=== PATIENT | male | born 1955 | race Two or more races ===

== ENCOUNTER 2018-12-23 10:53 | Inpatient (IN) ==
[2018-12-23 12:07] LABS: Basophils # 0.1 10*3/uL (0.0-0.2); Basophils % 1.1 % (0.0-0.8); Eosinophils # 0.3 10*3/uL (0.0-0.87); Eosinophils % 4.9 % (0.00-10.9); Hematocrit 30.5 VOL% (42.0-52.0); Hemoglobin 10.1 GM/DL (14.0-18.0); Immature Granulocytes % 0.9 %; Immature Granulocytes Absolute 0.05 #; Lymphocytes # 1.5 10*3/uL (1.4-4.0); Lymphocytes % 28.1 % (21.2-54.2); Mean Corpuscular HGB Conc 33.1 GM/DL (32-36); Mean Corpuscular Hemoglobin 34 PG (27-34); Monocytes # 0.8 10*3/uL (0.11-0.8); Monocytes % 14.2 % (1.7-12.7); Neutrophils # 2.8 10*3/uL (1.4-7.4); Neutrophils % 50.8 % (38.7-73.9); Platelet Count 129 T/CUMM (130-400); Red Blood Count 2.99 MC/CUMM (3.8-5.5); Red Cell Distribution Width 16.3 % (9.3-17.3); White Blood Count 5.5 T/CUMM (4-12)
[2018-12-23 12:32] LABS: Albumin 1.6 G/DL (3.4-5.0); Calcium 7.8 MG/DL (8.5-10.1); Osmolality,Calculated 274.7 MOS/KG (273-304); Potassium 4.2 MMOL/L (3.5-5.1); Total Protein 6.9 G/DL (6.4-8.3)
[2018-12-23] MEDS ORDERED: PROMETHAZINE 25 MG/1 ML VIAL IM PRN (13:17)
[2018-12-23] MEDS ORDERED: ONDANSETRON 4 MG/2 ML VIAL IV PRN (13:17)
[2018-12-23 13:20] LABS: Hepatitis A Ab IgM Quant 0.16 Index; Hepatitis A Ab IgM Result Negative (Negative); Hepatitis B Core IgM Quant 0.48 Index; Hepatitis B Core IgM Result Negative (Negative); Hepatitis B Surface Ag Quant > 1000.00 Index; Hepatitis C Virus Ab Result Negative (Negative)
[2018-12-23 13:34] LABS: Hepatitis B Surface Ag Result Positive (Negative)
[2018-12-23] MEDS: PANTOPRAZOLE 40 MG TABLET PO SCH (13:56)
[2018-12-23] MEDS ORDERED: ALBUMIN 25% 25 GM in PREMIX 1 EACH IV SCH (14:00)
[2018-12-23 14:07] LABS: Apearance,Urine CLOUDY (Clear); Bilirubin,Urine Negative (Negative); Blood, Urine Large mg/dL (Negative); Calcium Oxalate Crystals,Urine Occasional /HPF (Few); Glucose,Urine (UA) Negative (Negative); Hyaline Casts,Urine 2 /LPF (0-3); Ketones,Urine Negative (Negative); Mucus,Urine Few /LPF (Occasional); Nitrite,Urine Negative (Negative); Protein,Urine Negative; RBC,Urine 56 /HPF (0-4); Squamous Epithelial Cell,Urine Occasional /HPF (0-10); Urine Color Amber (Yellow); Urine Specific Gravity 1.019 (1.001-1.035); WBC,Urine 9 /HPF (0-6)
[2018-12-23 15:01] LABS: INR 1.5; PT Patient Result 16.6 SECS
[2018-12-23] MEDS: PIPERACILLIN/TAZOBACTAM 3,375 MG in SODIUM CHLORIDE 0.9% 100 ML IV SCH (17:21)
[2018-12-23] MEDS: FUROSEMIDE 40 MG/4 ML VIAL IV SCH (17:21)
[2018-12-23] MEDS: SPIRONOLACTONE 50 MG TABLET PO SCH ×2 (17:22→21:11)
[2018-12-23] MEDS: ALBUMIN 25% 25 GM in PREMIX 1 EACH IV SCH (17:23)
[2018-12-23 17:53] LABS: RBC,Peritoneal Fluid 160 T/CUMM
[2018-12-23 18:21] LABS: Folate 21.3 NG/ML (5.4-24.0)
[2018-12-23 18:33] LABS: Neutrophils,Peritoneal Fluid 13 %
[2018-12-24] MEDS: PIPERACILLIN/TAZOBACTAM 3,375 MG in SODIUM CHLORIDE 0.9% 100 ML IV SCH ×2 (01:30→08:59)
[2018-12-24] MEDS: FUROSEMIDE 40 MG/4 ML VIAL IV SCH (05:31)
[2018-12-24] MEDS: ALBUMIN 25% 25 GM in PREMIX 1 EACH IV SCH ×2 (05:31→17:32)
[2018-12-24 07:20] LABS: Eosinophils # 0.2 10*3/uL (0.0-0.87); Eosinophils % 5.3 % (0.00-10.9); Hematocrit 26.7 VOL% (42.0-52.0); Immature Granulocytes % 0.5 %; Immature Granulocytes Absolute 0.02 #; Lymphocytes # 1.5 10*3/uL (1.4-4.0); Lymphocytes % 38.4 % (21.2-54.2); Mean Corpuscular HGB Conc 33.7 GM/DL (32-36); Mean Corpuscular Hemoglobin 34 PG (27-34); Mean Corpuscular Volume 101.1 FL (87-102); Mean Platelet Volume 10.1 FL (9.6-12.0); Monocytes # 0.6 10*3/uL (0.11-0.8); Monocytes % 15.4 % (1.7-12.7); Neutrophils # 1.6 10*3/uL (1.4-7.4); Neutrophils % 39.4 % (38.7-73.9); Red Blood Count 2.64 MC/CUMM (3.8-5.5)
[2018-12-24 07:26] LABS: Platelet Count 99 T/CUMM (130-400)
[2018-12-24 07:44] LABS: Platelet Estimate Decreased
[2018-12-24 07:45] LABS: Albumin 1.5 G/DL (3.4-5.0); Bilirubin,Total 3.3 MG/DL (0.2-1.0); Calcium 7.4 MG/DL (8.5-10.1); Osmolality,Calculated 274.5 MOS/KG (273-304); Potassium 3.8 MMOL/L (3.5-5.1); Risk Ratio 3.73; Thyroid Stimulating Hormone 3.24 uIU/ml (0.358-3.74); Total Protein 5.6 G/DL (6.4-8.3); VLDL CHOLESTEROL 11.4 MG/DL
[2018-12-24] MEDS: PANTOPRAZOLE 40 MG TABLET PO SCH (08:59)
[2018-12-24] MEDS: SPIRONOLACTONE 50 MG TABLET PO SCH ×2 (08:59→20:27)
[2018-12-24] MEDS ORDERED: MAGNESIUM SULF RIDER 2 GM in PREMIX 1 EACH IV ONE (09:35)
[2018-12-24] MEDS ORDERED: cefTRIAXone 2,000 MG in SYRINGE 1 EACH IV SCH (15:30)
[2018-12-24] MEDS: PROPRANOLOL 10 MG TABLET PO SCH (22:11)
[2018-12-25 05:57] LABS: Basophils % 0.5 % (0.0-0.8); Eosinophils # 0.3 10*3/uL (0.0-0.87); Hematocrit 25.7 VOL% (42.0-52.0); Hemoglobin 8.8 GM/DL (14.0-18.0); Immature Granulocytes % 0.5 %; Immature Granulocytes Absolute 0.02 #; Lymphocytes # 1.5 10*3/uL (1.4-4.0); Lymphocytes % 36.4 % (21.2-54.2); Mean Corpuscular HGB Conc 34.2 GM/DL (32-36); Mean Corpuscular Hemoglobin 34 PG (27-34); Mean Corpuscular Volume 99.2 FL (87-102); Mean Platelet Volume 10.6 FL (9.6-12.0); Monocytes # 0.6 10*3/uL (0.11-0.8); Monocytes % 14.8 % (1.7-12.7); Neutrophils # 1.8 10*3/uL (1.4-7.4); Neutrophils % 41.8 % (38.7-73.9); Platelet Count 96 T/CUMM (130-400); Red Blood Count 2.59 MC/CUMM (3.8-5.5); Red Cell Distribution Width 15.7 % (9.3-17.3); White Blood Count 4.2 T/CUMM (4-12)
[2018-12-25 06:07] LABS: Calcium 7.4 MG/DL (8.5-10.1); Osmolality,Calculated 277.4 MOS/KG (273-304); Potassium 3.8 MMOL/L (3.5-5.1)
[2018-12-25 06:23] LABS: Platelet Estimate Decreased; Target Cells Few
[2018-12-25] MEDS: PROPRANOLOL 10 MG TABLET PO SCH ×2 (09:00→14:53)
[2018-12-25] MEDS ORDERED: FUROSEMIDE 40 MG TABLET PO SCH (09:00)
[2018-12-25] MEDS: PANTOPRAZOLE 40 MG TABLET PO SCH (14:53)
[2018-12-25] MEDS: SPIRONOLACTONE 50 MG TABLET PO SCH (14:53)
[2018-12-25 15:36] VITALS: BP 116/68
== END 2018-12-25 17:00 | disposition home or self-care (01) | DRG 441 ==
LOC: N.EDINP 10:53 → N.ED 10:53 → OBSVTOIN 13:17 → N.EDINP 14:40 → N.5E 15:04
PROVIDERS: ADMIT Internal Medicine; ATTEND Internal Medicine

== ENCOUNTER 2019-01-28 10:49 | Inpatient (IN) ==
[2019-01-28 11:48] LABS: INR 1.3; PT Patient Result 13.7 SECS
[2019-01-28 11:50] LABS: Basophils # 0.1 10*3/uL (0.0-0.2); Basophils % 0.6 % (0.0-0.8); Eosinophils # 0.3 10*3/uL (0.0-0.87); Hematocrit 39.3 VOL% (42.0-52.0); Hemoglobin 13.7 GM/DL (14.0-18.0); Immature Granulocytes % 0.8 %; Immature Granulocytes Absolute 0.08 #; Lymphocytes # 2.9 10*3/uL (1.4-4.0); Lymphocytes % 29.8 % (21.2-54.2); Mean Corpuscular HGB Conc 34.9 GM/DL (32-36); Mean Corpuscular Hemoglobin 34 PG (27-34); Mean Corpuscular Volume 96.3 FL (87-102); Mean Platelet Volume 10.9 FL (9.6-12.0); Monocytes % 10.7 % (1.7-12.7); Neutrophils # 5.4 10*3/uL (1.4-7.4); Neutrophils % 55.1 % (38.7-73.9); Platelet Count 133 T/CUMM (130-400); Red Blood Count 4.08 MC/CUMM (3.8-5.5); Red Cell Distribution Width 14.7 % (9.3-17.3); White Blood Count 9.8 T/CUMM (4-12)
[2019-01-28 12:07] LABS: Alanine Aminotransferase 35 U/L (16-61); Alkaline Phosphatase 150 U/L (45-117); Aspartate Amino Transferase 70 U/L (0-37); Blood Urea Nitrogen 22 MG/DL (7-18); Calcium 9.4 MG/DL (8.5-10.1); Glucose 157 MG/DL (74-106); Osmolality,Calculated 256.5 MOS/KG (273-304); Potassium 5.4 MMOL/L (3.5-5.1); Sodium 125 MMOL/L (136-145); Total Protein 7.2 G/DL (6.4-8.3); Troponin I < 0.015 NG/ML (0.00-0.045)
[2019-01-28] MEDS ORDERED: SODIUM CHLORIDE 0.9% 1,000 ML IV STA (12:52)
[2019-01-28] MEDS ORDERED: ONDANSETRON 4 MG/2 ML VIAL IV STA (12:52)
[2019-01-28] MEDS ORDERED: ONDANSETRON 4 MG/2 ML VIAL IV PRN (13:17)
[2019-01-28] MEDS: DEXTROSE 5% NACL 0.9% 1,000 ML IV SCH (16:20)
[2019-01-28 19:08] LABS: Apearance,Urine CLOUDY (Clear); Bacteria,Urine Moderate /HPF (Few); Bilirubin,Urine Negative (Negative); Blood, Urine Large mg/dL (Negative); Glucose,Urine (UA) Negative (Negative); Hyaline Casts,Urine 5 /LPF (0-3); Ketones,Urine Negative (Negative); Mucus,Urine Occasional /LPF (Occasional); Nitrite,Urine Negative (Negative); Protein,Urine 30 MG/DL; RBC,Urine 39 /HPF (0-4); Urine Color Amber (Yellow); Urine Specific Gravity 1.014 (1.001-1.035); WBC,Urine 867 /HPF (0-6)
[2019-01-29] MEDS: DEXTROSE 5% NACL 0.9% 1,000 ML IV SCH ×4 (02:29→18:11)
[2019-01-29 05:23] LABS: Basophils # 0.1 10*3/uL (0.0-0.2); Basophils % 0.8 % (0.0-0.8); Eosinophils # 0.4 10*3/uL (0.0-0.87); Eosinophils % 4.5 % (0.00-10.9); Hematocrit 31.1 VOL% (42.0-52.0); Immature Granulocytes % 0.9 %; Immature Granulocytes Absolute 0.07 #; Lymphocytes # 2.6 10*3/uL (1.4-4.0); Lymphocytes % 33.1 % (21.2-54.2); Mean Corpuscular HGB Conc 33.8 GM/DL (32-36); Mean Corpuscular Hemoglobin 33 PG (27-34); Mean Corpuscular Volume 97.8 FL (87-102); Monocytes % 12.1 % (1.7-12.7); Neutrophils # 3.8 10*3/uL (1.4-7.4); Neutrophils % 48.6 % (38.7-73.9); Red Cell Distribution Width 14.6 % (9.3-17.3); White Blood Count 7.9 T/CUMM (4-12)
[2019-01-29 05:41] LABS: Hemoglobin 10.5 GM/DL (14.0-18.0); Platelet Count 105 T/CUMM (130-400); Red Blood Count 3.18 MC/CUMM (3.8-5.5)
[2019-01-29 05:48] LABS: Calcium 8.1 MG/DL (8.5-10.1); Osmolality,Calculated 267.5 MOS/KG (273-304); Potassium 4.7 MMOL/L (3.5-5.1)
[2019-01-29] MEDS: PANTOPRAZOLE 40 MG VIAL IV SCH (08:19)
[2019-01-29] MEDS: PROPRANOLOL 10 MG TABLET PO SCH ×2 (09:19→21:50)
[2019-01-29] MEDS: LACTULOSE 20 GM/30 ML UDCUP PO SCH ×2 (09:19→21:51)
[2019-01-29] MEDS: SPIRONOLACTONE 50 MG TABLET PO SCH ×2 (09:19→21:50)
[2019-01-29] MEDS: cefTRIAXone 1,000 MG in SYRINGE 1 EACH IV SCH (09:19)
[2019-01-30] MEDS: DEXTROSE 5% NACL 0.9% 1,000 ML IV SCH ×3 (01:35→17:36)
[2019-01-30 06:00] LABS: Basophils # 0.1 10*3/uL (0.0-0.2); Basophils % 1.1 % (0.0-0.8); Eosinophils # 0.3 10*3/uL (0.0-0.87); Eosinophils % 4.9 % (0.00-10.9); Hematocrit 28.8 VOL% (42.0-52.0); Hemoglobin 9.4 GM/DL (14.0-18.0); Immature Granulocytes % 0.6 %; Immature Granulocytes Absolute 0.04 #; Lymphocytes # 1.9 10*3/uL (1.4-4.0); Lymphocytes % 28.3 % (21.2-54.2); Mean Corpuscular HGB Conc 32.6 GM/DL (32-36); Mean Corpuscular Hemoglobin 33 PG (27-34); Mean Corpuscular Volume 101.1 FL (87-102); Mean Platelet Volume 10.3 FL (9.6-12.0); Monocytes % 15.3 % (1.7-12.7); Neutrophils # 3.3 10*3/uL (1.4-7.4); Neutrophils % 49.8 % (38.7-73.9); Platelet Count 84 T/CUMM (130-400); Red Blood Count 2.85 MC/CUMM (3.8-5.5); White Blood Count 6.5 T/CUMM (4-12)
[2019-01-30 06:07] LABS: Albumin 1.3 G/DL (3.4-5.0); Bilirubin,Direct 1.6 MG/DL (0.0-0.20); Bilirubin,Indirect 1.2 MG/DL (0.0-1.0); Bilirubin,Total 2.8 MG/DL (0.2-1.0); Calcium 7.6 MG/DL (8.5-10.1); Osmolality,Calculated 278.5 MOS/KG (273-304); Potassium 4.2 MMOL/L (3.5-5.1); Total Protein 4.9 G/DL (6.4-8.3)
[2019-01-30 06:42] LABS: Band Neutrophils 2 % (0-10); Eosinophils 4 % (0-10); Lymphocytes 23 % (20-55); Segmented Neutrophils 60 % (50-85); Total Cells Counted 100
[2019-01-30 06:43] LABS: Anisocytosis 1+; Platelet Estimate Decreased
[2019-01-30] MEDS: PROPRANOLOL 10 MG TABLET PO SCH ×2 (08:54→21:28)
[2019-01-30] MEDS: SPIRONOLACTONE 50 MG TABLET PO SCH ×2 (08:54→21:28)
[2019-01-30] MEDS: PANTOPRAZOLE 40 MG VIAL IV SCH (08:54)
[2019-01-30] MEDS: LACTULOSE 20 GM/30 ML UDCUP PO SCH ×2 (08:54→21:28)
[2019-01-30] MEDS: cefTRIAXone 1,000 MG in SYRINGE 1 EACH IV SCH (08:55)
[2019-01-30] MEDS ORDERED: MAGNESIUM SULF RIDER 2 GM in PREMIX 1 EACH IV ONE ×2 (13:46→18:00)
[2019-01-31] MEDS: DEXTROSE 5% NACL 0.9% 1,000 ML IV SCH ×3 (04:00→21:50)
[2019-01-31 05:57] LABS: Basophils # 0.1 10*3/uL (0.0-0.2); Basophils % 0.9 % (0.0-0.8); Eosinophils # 0.5 10*3/uL (0.0-0.87); Eosinophils % 6.3 % (0.00-10.9); Hematocrit 26.5 VOL% (42.0-52.0); Immature Granulocytes % 0.8 %; Immature Granulocytes Absolute 0.06 #; Lymphocytes # 1.7 10*3/uL (1.4-4.0); Lymphocytes % 22.2 % (21.2-54.2); Mean Corpuscular Hemoglobin 34 PG (27-34); Mean Corpuscular Volume 100.4 FL (87-102); Mean Platelet Volume 11.3 FL (9.6-12.0); Monocytes # 1.4 10*3/uL (0.11-0.8); Monocytes % 18.6 % (1.7-12.7); Neutrophils # 3.9 10*3/uL (1.4-7.4); Neutrophils % 51.2 % (38.7-73.9); Red Blood Count 2.64 MC/CUMM (3.8-5.5); White Blood Count 7.6 T/CUMM (4-12)
[2019-01-31 06:11] LABS: Platelet Count 83 T/CUMM (130-400)
[2019-01-31 06:30] LABS: Albumin 1.4 G/DL (3.4-5.0); Bilirubin,Direct 1.5 MG/DL (0.0-0.20); Bilirubin,Indirect 1.4 MG/DL (0.0-1.0); Bilirubin,Total 2.9 MG/DL (0.2-1.0); Calcium 7.5 MG/DL (8.5-10.1); Osmolality,Calculated 277.5 MOS/KG (273-304); Potassium 4.7 MMOL/L (3.5-5.1); Total Protein 4.8 G/DL (6.4-8.3)
[2019-01-31 07:07] LABS: Eosinophils 9 % (0-10); Lymphocytes 25 % (20-55); Segmented Neutrophils 46 % (50-85); Total Cells Counted 100
[2019-01-31 07:08] LABS: Platelet Estimate Decreased; Smudge Cells Few
[2019-01-31 07:09] LABS: Burr Cells Few
[2019-01-31] MEDS: SPIRONOLACTONE 50 MG TABLET PO SCH ×2 (09:15→20:34)
[2019-01-31] MEDS: PANTOPRAZOLE 40 MG VIAL IV SCH (09:15)
[2019-01-31] MEDS: LACTULOSE 20 GM/30 ML UDCUP PO SCH ×2 (09:15→20:34)
[2019-01-31] MEDS: PROPRANOLOL 10 MG TABLET PO SCH ×2 (09:15→20:34)
[2019-01-31] MEDS: cefTRIAXone 1,000 MG in SYRINGE 1 EACH IV SCH (09:16)
[2019-01-31] MEDS: MEROPENEM 500 MG in SODIUM CHLORIDE 0.9% 100 ML IV SCH ×2 (15:03→23:11)
[2019-01-31] MEDS: FAMOTIDINE 20 MG TABLET PO SCH (20:34)
[2019-01-31] MEDS ORDERED: FAMOTIDINE 20 MG TABLET PO SCH (21:00)
[2019-02-01 05:23] LABS: Basophils # 0.1 10*3/uL (0.0-0.2); Basophils % 0.9 % (0.0-0.8); Eosinophils # 0.4 10*3/uL (0.0-0.87); Eosinophils % 6.2 % (0.00-10.9); Hematocrit 25.5 VOL% (42.0-52.0); Hemoglobin 8.5 GM/DL (14.0-18.0); Immature Granulocytes % 0.9 %; Immature Granulocytes Absolute 0.06 #; Lymphocytes # 1.9 10*3/uL (1.4-4.0); Lymphocytes % 27.4 % (21.2-54.2); Mean Corpuscular HGB Conc 33.3 GM/DL (32-36); Mean Corpuscular Hemoglobin 34 PG (27-34); Mean Corpuscular Volume 100.8 FL (87-102); Mean Platelet Volume 10.8 FL (9.6-12.0); Monocytes # 1.3 10*3/uL (0.11-0.8); Monocytes % 18.1 % (1.7-12.7); Neutrophils # 3.2 10*3/uL (1.4-7.4); Neutrophils % 46.5 % (38.7-73.9); Platelet Count 74 T/CUMM (130-400); Red Blood Count 2.53 MC/CUMM (3.8-5.5); Red Cell Distribution Width 15.2 % (9.3-17.3)
[2019-02-01 05:47] LABS: Albumin 1.3 G/DL (3.4-5.0); Bilirubin,Direct 1.49 MG/DL (0.0-0.20); Bilirubin,Indirect 1.5 MG/DL (0.0-1.0); Calcium 7.3 MG/DL (8.5-10.1); Osmolality,Calculated 276.5 MOS/KG (273-304); Potassium 4.9 MMOL/L (3.5-5.1); Total Protein 4.4 G/DL (6.4-8.3)
[2019-02-01 05:50] LABS: Eosinophils 8 % (0-10); Hypochromasia 1+; Lymphocytes 18 % (20-55); Platelet Estimate Decreased; Segmented Neutrophils 56 % (50-85); Total Cells Counted 100
[2019-02-01] MEDS: MEROPENEM 500 MG in SODIUM CHLORIDE 0.9% 100 ML IV SCH ×2 (06:34→16:18)
[2019-02-01] MEDS: LACTULOSE 20 GM/30 ML UDCUP PO SCH (08:19)
[2019-02-01] MEDS: FAMOTIDINE 20 MG TABLET PO SCH (08:19)
[2019-02-01] MEDS: PROPRANOLOL 10 MG TABLET PO SCH (08:19)
[2019-02-01] MEDS: SPIRONOLACTONE 50 MG TABLET PO SCH (08:19)
[2019-02-01] MEDS: DEXTROSE 5% NACL 0.9% 1,000 ML IV SCH ×2 (08:23→16:18)
[2019-02-01 16:01] VITALS: BP 125/71
== END 2019-02-01 17:41 | disposition home or self-care (01) | DRG 433 ==
LOC: N.ED 10:49 → N.EDINP 10:49 → N.2E 16:26
PROVIDERS: ADMIT Family Medicine; ATTEND Family Medicine

== ENCOUNTER 2019-02-23 21:06 | Inpatient (IN) ==
[2019-02-23] MEDS ORDERED: SODIUM CHLORIDE 0.9% 1,000 ML IV STA (21:45)
[2019-02-23 21:55] LABS: Basophils # 0.1 10*3/uL (0.0-0.2); Eosinophils # 0.3 10*3/uL (0.0-0.87); Eosinophils % 2.5 % (0.00-10.9); Hemoglobin 11.6 GM/DL (14.0-18.0); Immature Granulocytes % 2.2 %; Immature Granulocytes Absolute 0.25 #; Lymphocytes # 2.6 10*3/uL (1.4-4.0); Lymphocytes % 22.9 % (21.2-54.2); Mean Corpuscular HGB Conc 35.2 GM/DL (32-36); Mean Corpuscular Hemoglobin 34 PG (27-34); Mean Corpuscular Volume 97.3 FL (87-102); Mean Platelet Volume 10.2 FL (9.6-12.0); Monocytes # 1.7 10*3/uL (0.11-0.8); Monocytes % 14.8 % (1.7-12.7); Neutrophils # 6.5 10*3/uL (1.4-7.4); Neutrophils % 56.6 % (38.7-73.9); Platelet Count 146 T/CUMM (130-400); Red Blood Count 3.39 MC/CUMM (3.8-5.5); Red Cell Distribution Width 15.1 % (9.3-17.3); White Blood Count 11.4 T/CUMM (4-12)
[2019-02-23 22:04] LABS: INR 1.4; PT Patient Result 14.7 SECS
[2019-02-23 22:18] LABS: Alanine Aminotransferase 31 U/L (16-61); Albumin 1.8 G/DL (3.4-5.0); Alkaline Phosphatase 163 U/L (45-117); Aspartate Amino Transferase 62 U/L (0-37); Blood Urea Nitrogen 35 MG/DL (7-18); Calcium 8.2 MG/DL (8.5-10.1); Glucose 157 MG/DL (74-106); Osmolality,Calculated 259.6 MOS/KG (273-304); Sodium 124 MMOL/L (136-145); Total Protein 6.6 G/DL (6.4-8.3); Troponin I < 0.015 NG/ML (0.00-0.045)
[2019-02-23 22:25] LABS: ABG Base Excess -1.6 MMOL/L (-2.5-2.5); ABG HCO3 23.1 MMOL/L (20-26); ABG Oxygen Saturation 98.9 % (95-100); ABG PCO2 31.6 MM HG (35-48); ABG PH 7.444 (7.35-7.45); ABG TCO2 19.3 MMOL/L (23-27)
[2019-02-23] MEDS ORDERED: cefTRIAXone 1,000 MG in SODIUM CHLORIDE 0.9% 100 ML IV STA (23:17)
[2019-02-23] MEDS ORDERED: LIDOCAINE 2% TOP JELLY 20 ML VIAL INTRAURETH ONE (23:38)
[2019-02-24] MEDS ORDERED: SODIUM CHLORIDE 0.9% 1,000 ML IV SCH (00:50)
[2019-02-24] MEDS ORDERED: LACTULOSE 20 GM/30 ML UDCUP PO PRN (00:50)
[2019-02-24] MEDS ORDERED: GLUCAGON 1 MG VIAL IM PRN (00:50)
[2019-02-24] MEDS ORDERED: ONDANSETRON 4 MG/2 ML VIAL IV PRN (00:50)
[2019-02-24] MEDS ORDERED: DEXTROSE 50% 25 GM/50 ML SYRINGE IV PRN (00:50)
[2019-02-24] MEDS ORDERED: ACETAMINOPHEN 325 MG TABLET PO PRN (00:50)
[2019-02-24 01:21] LABS: Apearance,Urine CLEAR (Clear); Bilirubin,Urine Negative (Negative); Blood, Urine Large mg/dL (Negative); Glucose,Urine (UA) Negative (Negative); Ketones,Urine Negative (Negative); Nitrite,Urine Negative (Negative); Protein,Urine Negative; RBC,Urine 55 /HPF (0-4); Squamous Epithelial Cell,Urine Occasional /HPF (0-10); Urine Color Yellow (Yellow); Urine Specific Gravity 1.008 (1.001-1.035); Urine Urobilinogen < 2.0 EU/DL (0.2-1.0); WBC,Urine 3 /HPF (0-6)
[2019-02-24] MEDS: INSULIN REGULAR 100 UNIT/ML SUBCUT SCH ×5 (01:23→23:55)
[2019-02-24 02:36] LABS: Albumin 1.9 G/DL (3.4-5.0); Bilirubin,Total 3.3 MG/DL (0.2-1.0); Calcium 8.2 MG/DL (8.5-10.1); Osmolality,Calculated 264.2 MOS/KG (273-304); Potassium 5.7 MMOL/L (3.5-5.1); Risk Ratio 4.52; Total Protein 6.7 G/DL (6.4-8.3)
[2019-02-24 04:04] LABS: Basophils # 0.1 10*3/uL (0.0-0.2); Basophils % 0.6 % (0.0-0.8); Eosinophils # 0.2 10*3/uL (0.0-0.87); Eosinophils % 1.9 % (0.00-10.9); Hematocrit 29.6 VOL% (42.0-52.0); Hemoglobin 10.4 GM/DL (14.0-18.0); Immature Granulocytes % 2.4 %; Immature Granulocytes Absolute 0.26 #; Lymphocytes % 18.7 % (21.2-54.2); Mean Corpuscular HGB Conc 35.1 GM/DL (32-36); Mean Corpuscular Hemoglobin 34 PG (27-34); Mean Corpuscular Volume 95.5 FL (87-102); Mean Platelet Volume 10.5 FL (9.6-12.0); Monocytes # 1.5 10*3/uL (0.11-0.8); Monocytes % 14.2 % (1.7-12.7); Neutrophils # 6.7 10*3/uL (1.4-7.4); Neutrophils % 62.2 % (38.7-73.9); Platelet Count 128 T/CUMM (130-400); Red Cell Distribution Width 14.9 % (9.3-17.3); White Blood Count 10.8 T/CUMM (4-12)
[2019-02-24 05:40] LABS: Barbiturates Screen,Urine Negative (Negative); Benzodiazepines Screen,Urine Negative (Negative); Cannabinoid Screen,Urine Negative (Negative); Opiate Screen,Urine Negative (Negative); Phencyclidine Screen,Urine Negative (Negative)
[2019-02-24] MEDS ORDERED: LACTULOSE 20 GM/30 ML UDCUP PO ONE (08:45)
[2019-02-24] MEDS: DOCUSATE SODIUM 100 MG CAPSULE PO SCH ×2 (08:49→21:17)
[2019-02-24] MEDS: PANTOPRAZOLE 40 MG VIAL IV SCH (08:49)
[2019-02-24] MEDS: SODIUM CHLORIDE 0.9% 1,000 ML IV SCH (10:09)
[2019-02-24] MEDS: LACTULOSE 20 GM/30 ML UDCUP PO SCH ×2 (17:56→21:17)
[2019-02-24] MEDS: cefTRIAXone 1,000 MG in SYRINGE 1 EACH IV SCH (23:38)
[2019-02-25] MEDS: LACTULOSE 20 GM/30 ML UDCUP PO SCH ×3 (05:30→21:21)
[2019-02-25 05:43] LABS: Basophils # 0.1 10*3/uL (0.0-0.2); Basophils % 0.8 % (0.0-0.8); Eosinophils # 0.2 10*3/uL (0.0-0.87); Eosinophils % 2.3 % (0.00-10.9); Hematocrit 25.5 VOL% (42.0-52.0); Immature Granulocytes % 2.1 %; Immature Granulocytes Absolute 0.16 #; Lymphocytes # 2.5 10*3/uL (1.4-4.0); Lymphocytes % 31.6 % (21.2-54.2); Mean Corpuscular HGB Conc 35.3 GM/DL (32-36); Mean Corpuscular Hemoglobin 35 PG (27-34); Mean Corpuscular Volume 97.7 FL (87-102); Mean Platelet Volume 10.7 FL (9.6-12.0); Monocytes # 1.6 10*3/uL (0.11-0.8); Monocytes % 20.4 % (1.7-12.7); Neutrophils # 3.3 10*3/uL (1.4-7.4); Neutrophils % 42.8 % (38.7-73.9); Platelet Count 91 T/CUMM (130-400); Red Blood Count 2.61 MC/CUMM (3.8-5.5); Red Cell Distribution Width 15.6 % (9.3-17.3); White Blood Count 7.8 T/CUMM (4-12)
[2019-02-25] MEDS: SODIUM CHLORIDE 0.9% 1,000 ML IV SCH (05:47)
[2019-02-25 05:57] LABS: Albumin 1.4 G/DL (3.4-5.0); Bilirubin,Direct 1.37 MG/DL (0.0-0.20); Bilirubin,Indirect 0.9 MG/DL (0.0-1.0); Bilirubin,Total 2.3 MG/DL (0.2-1.0); Calcium 7.6 MG/DL (8.5-10.1); Osmolality,Calculated 271.5 MOS/KG (273-304); Total Protein 5.1 G/DL (6.4-8.3)
[2019-02-25 06:34] LABS: Eosinophils 3 % (0-10); Lymphocytes 40 % (20-55); Myelocytes 1 %; Segmented Neutrophils 35 % (50-85); Total Cells Counted 100
[2019-02-25 06:35] LABS: Hypochromasia 1+
[2019-02-25 06:36] LABS: Burr Cells 1+; Platelet Estimate Decreased
[2019-02-25] MEDS: INSULIN REGULAR 100 UNIT/ML SUBCUT SCH ×3 (06:43→18:56)
[2019-02-25] MEDS ORDERED: Entecavir [Entecavir] 0.5 MG PO SCH (09:00)
[2019-02-25] MEDS: PANTOPRAZOLE 40 MG VIAL IV SCH (09:21)
[2019-02-25] MEDS: DOCUSATE SODIUM 100 MG CAPSULE PO SCH ×2 (09:21→20:31)
[2019-02-25] MEDS: ZINC SULFATE 220 MG CAPSULE PO SCH (09:21)
[2019-02-25] MEDS: MULTIVITAMIN (CENTRUM) TABLET PO SCH (09:21)
[2019-02-26] MEDS: cefTRIAXone 1,000 MG in SYRINGE 1 EACH IV SCH (01:30)
[2019-02-26] MEDS: INSULIN REGULAR 100 UNIT/ML SUBCUT SCH ×4 (01:43→17:58)
[2019-02-26] MEDS: SODIUM CHLORIDE 0.9% 1,000 ML IV SCH (03:29)
[2019-02-26 05:19] LABS: Basophils # 0.1 10*3/uL (0.0-0.2); Basophils % 0.8 % (0.0-0.8); Eosinophils # 0.3 10*3/uL (0.0-0.87); Eosinophils % 3.7 % (0.00-10.9); Hematocrit 25.9 VOL% (42.0-52.0); Hemoglobin 8.8 GM/DL (14.0-18.0); Immature Granulocytes Absolute 0.22 #; Lymphocytes # 1.4 10*3/uL (1.4-4.0); Lymphocytes % 19.7 % (21.2-54.2); Mean Corpuscular Hemoglobin 34 PG (27-34); Mean Corpuscular Volume 99.2 FL (87-102); Monocytes # 1.5 10*3/uL (0.11-0.8); Monocytes % 20.4 % (1.7-12.7); Neutrophils # 3.8 10*3/uL (1.4-7.4); Neutrophils % 52.4 % (38.7-73.9); Platelet Count 98 T/CUMM (130-400); Red Blood Count 2.61 MC/CUMM (3.8-5.5); Red Cell Distribution Width 15.4 % (9.3-17.3); White Blood Count 7.3 T/CUMM (4-12)
[2019-02-26 05:31] LABS: Albumin 1.5 G/DL (3.4-5.0); Bilirubin,Direct 1.31 MG/DL (0.0-0.20); Bilirubin,Indirect 1.7 MG/DL (0.0-1.0); Calcium 7.6 MG/DL (8.5-10.1); Osmolality,Calculated 265.7 MOS/KG (273-304); Total Protein 5.2 G/DL (6.4-8.3)
[2019-02-26 06:23] LABS: Anisocytosis Slight; Band Neutrophils 2 % (0-10); Eosinophils 5 % (0-10); Lymphocytes 15 % (20-55); Metamyelocytes 2 %; Microcytosis Slight; Segmented Neutrophils 69 % (50-85); Total Cells Counted 100
[2019-02-26 06:25] LABS: Platelet Estimate Decreased; Spherocytes Slight; Target Cells Slight
[2019-02-26] MEDS: LACTULOSE 20 GM/30 ML UDCUP PO SCH ×3 (06:44→21:18)
[2019-02-26] MEDS: ZINC SULFATE 220 MG CAPSULE PO SCH (08:55)
[2019-02-26] MEDS: MULTIVITAMIN (CENTRUM) TABLET PO SCH (08:55)
[2019-02-26] MEDS: DOCUSATE SODIUM 100 MG CAPSULE PO SCH ×2 (08:55→20:31)
[2019-02-26] MEDS: PANTOPRAZOLE 40 MG VIAL IV SCH (08:56)
[2019-02-26] MEDS ORDERED: MAGNESIUM SULF RIDER 2 GM in PREMIX 1 EACH IV PRN (10:14)
[2019-02-26] MEDS ORDERED: MAGNESIUM SULF RIDER 4 GM in PREMIX 1 EACH IV PRN (10:14)
[2019-02-26] MEDS ORDERED: PROMETHAZINE 25 MG TABLET PO PRN (15:28)
[2019-02-27] MEDS: cefTRIAXone 1,000 MG in SYRINGE 1 EACH IV SCH (00:32)
[2019-02-27] MEDS: INSULIN REGULAR 100 UNIT/ML SUBCUT SCH ×4 (00:33→18:36)
[2019-02-27 04:35] LABS: Basophils # 0.1 10*3/uL (0.0-0.2); Basophils % 0.6 % (0.0-0.8); Eosinophils # 0.3 10*3/uL (0.0-0.87); Eosinophils % 3.7 % (0.00-10.9); Hematocrit 25.7 VOL% (42.0-52.0); Hemoglobin 8.7 GM/DL (14.0-18.0); Immature Granulocytes % 2.2 %; Lymphocytes # 1.7 10*3/uL (1.4-4.0); Lymphocytes % 18.3 % (21.2-54.2); Mean Corpuscular HGB Conc 33.9 GM/DL (32-36); Mean Corpuscular Hemoglobin 34 PG (27-34); Mean Corpuscular Volume 99.6 FL (87-102); Mean Platelet Volume 10.5 FL (9.6-12.0); Monocytes # 1.7 10*3/uL (0.11-0.8); Monocytes % 18.3 % (1.7-12.7); Neutrophils # 5.1 10*3/uL (1.4-7.4); Neutrophils % 56.9 % (38.7-73.9); Platelet Count 100 T/CUMM (130-400); Red Blood Count 2.58 MC/CUMM (3.8-5.5); Red Cell Distribution Width 15.2 % (9.3-17.3)
[2019-02-27 05:34] LABS: Anisocytosis 1+; Eosinophils 9 % (0-10); Lymphocytes 20 % (20-55); Platelet Estimate Decreased; Segmented Neutrophils 55 % (50-85); Total Cells Counted 100
[2019-02-27 05:35] LABS: Albumin 1.5 G/DL (3.4-5.0); Bilirubin,Direct 1.41 MG/DL (0.0-0.20); Bilirubin,Indirect 1.6 MG/DL (0.0-1.0); Calcium 7.8 MG/DL (8.5-10.1); Osmolality,Calculated 264.8 MOS/KG (273-304); Potassium 5.1 MMOL/L (3.5-5.1); Total Protein 5.1 G/DL (6.4-8.3)
[2019-02-27] MEDS: LACTULOSE 20 GM/30 ML UDCUP PO SCH ×3 (06:36→21:11)
[2019-02-27] MEDS ORDERED: Entecavir [Entecavir] 0.5 MG PO SCH (09:00)
[2019-02-27] MEDS: PANTOPRAZOLE 40 MG VIAL IV SCH (09:20)
[2019-02-27] MEDS: MULTIVITAMIN (CENTRUM) TABLET PO SCH (09:20)
[2019-02-27] MEDS: ZINC SULFATE 220 MG CAPSULE PO SCH (09:20)
[2019-02-27] MEDS: DOCUSATE SODIUM 100 MG CAPSULE PO SCH ×2 (09:20→21:12)
[2019-02-28] MEDS: cefTRIAXone 1,000 MG in SYRINGE 1 EACH IV SCH (01:35)
[2019-02-28] MEDS: INSULIN REGULAR 100 UNIT/ML SUBCUT SCH ×4 (01:35→17:50)
[2019-02-28 05:01] LABS: Basophils % 0.6 % (0.0-0.8); Eosinophils # 0.4 10*3/uL (0.0-0.87); Eosinophils % 5.3 % (0.00-10.9); Hemoglobin 8.5 GM/DL (14.0-18.0); Immature Granulocytes % 2.7 %; Immature Granulocytes Absolute 0.19 #; Lymphocytes # 1.9 10*3/uL (1.4-4.0); Lymphocytes % 27.7 % (21.2-54.2); Mean Corpuscular Hemoglobin 34 PG (27-34); Mean Corpuscular Volume 98.8 FL (87-102); Mean Platelet Volume 10.7 FL (9.6-12.0); Monocytes # 1.1 10*3/uL (0.11-0.8); Monocytes % 15.8 % (1.7-12.7); Neutrophils # 3.4 10*3/uL (1.4-7.4); Neutrophils % 47.9 % (38.7-73.9); Platelet Count 88 T/CUMM (130-400); Red Blood Count 2.53 MC/CUMM (3.8-5.5); Red Cell Distribution Width 15.3 % (9.3-17.3)
[2019-02-28 05:32] LABS: Albumin 1.4 G/DL (3.4-5.0); Bilirubin,Direct 1.23 MG/DL (0.0-0.20); Bilirubin,Indirect 1.2 MG/DL (0.0-1.0); Bilirubin,Total 2.4 MG/DL (0.2-1.0); Calcium 7.4 MG/DL (8.5-10.1); Osmolality,Calculated 264.8 MOS/KG (273-304); Potassium 5.3 MMOL/L (3.5-5.1); Total Protein 5.1 G/DL (6.4-8.3)
[2019-02-28 06:06] LABS: Band Neutrophils 3 % (0-10); Eosinophils 3 % (0-10); Lymphocytes 31 % (20-55); Myelocytes 1 %; Segmented Neutrophils 52 % (50-85); Total Cells Counted 100
[2019-02-28 06:07] LABS: Anisocytosis 1+; Hypochromasia 1+; Platelet Estimate Decreased
[2019-02-28] MEDS: LACTULOSE 20 GM/30 ML UDCUP PO SCH ×3 (06:22→21:39)
[2019-02-28] MEDS: PANTOPRAZOLE 40 MG VIAL IV SCH (08:14)
[2019-02-28] MEDS: ZINC SULFATE 220 MG CAPSULE PO SCH (08:14)
[2019-02-28] MEDS: DOCUSATE SODIUM 100 MG CAPSULE PO SCH ×2 (08:14→21:39)
[2019-02-28] MEDS: MULTIVITAMIN (CENTRUM) TABLET PO SCH (08:14)
[2019-02-28] MEDS: OXYBUTYNIN 5 MG TABLET PO PRN ×2 (17:39→21:39)
[2019-03-01 00:06] LABS: Apearance,Urine Slightly Hazy (Clear); Bilirubin,Urine Negative (Negative); Blood, Urine Large mg/dL (Negative); Glucose,Urine (UA) Negative (Negative); Ketones,Urine 5 mg/dL (Negative); Mucus,Urine Occasional /LPF (Occasional); Nitrite,Urine Negative (Negative); Protein,Urine 100 MG/DL; RBC,Urine 2575 /HPF (0-4); Squamous Epithelial Cell,Urine Occasional /HPF (0-10); Urine Color Amber (Yellow); Urine Specific Gravity 1.023 (1.001-1.035); WBC,Urine 4 /HPF (0-6)
[2019-03-01] MEDS: INSULIN REGULAR 100 UNIT/ML SUBCUT SCH ×3 (00:28→12:29)
[2019-03-01] MEDS: cefTRIAXone 1,000 MG in SYRINGE 1 EACH IV SCH (00:32)
[2019-03-01 04:55] LABS: Basophils % 0.4 % (0.0-0.8); Eosinophils # 0.3 10*3/uL (0.0-0.87); Eosinophils % 3.9 % (0.00-10.9); Hematocrit 24.9 VOL% (42.0-52.0); Hemoglobin 8.5 GM/DL (14.0-18.0); Immature Granulocytes % 3.2 %; Immature Granulocytes Absolute 0.25 #; Lymphocytes # 1.8 10*3/uL (1.4-4.0); Lymphocytes % 23.3 % (21.2-54.2); Mean Corpuscular HGB Conc 34.1 GM/DL (32-36); Mean Corpuscular Hemoglobin 34 PG (27-34); Mean Corpuscular Volume 99.2 FL (87-102); Mean Platelet Volume 10.3 FL (9.6-12.0); Monocytes # 1.1 10*3/uL (0.11-0.8); Monocytes % 14.4 % (1.7-12.7); Neutrophils # 4.2 10*3/uL (1.4-7.4); Neutrophils % 54.8 % (38.7-73.9); Platelet Count 91 T/CUMM (130-400); Red Blood Count 2.51 MC/CUMM (3.8-5.5); Red Cell Distribution Width 15.6 % (9.3-17.3); White Blood Count 7.7 T/CUMM (4-12)
[2019-03-01 05:33] LABS: Albumin 1.4 G/DL (3.4-5.0); Bilirubin,Direct 1.12 MG/DL (0.0-0.20); Bilirubin,Indirect 0.6 MG/DL (0.0-1.0); Bilirubin,Total 1.7 MG/DL (0.2-1.0); Calcium 7.3 MG/DL (8.5-10.1); Osmolality,Calculated 263.9 MOS/KG (273-304); Potassium 5.5 MMOL/L (3.5-5.1); Total Protein 5.1 G/DL (6.4-8.3)
[2019-03-01] MEDS: LACTULOSE 20 GM/30 ML UDCUP PO SCH ×2 (05:42→15:00)
[2019-03-01 06:36] LABS: Eosinophils 7 % (0-10); Hypochromasia 1+; Lymphocytes 34 % (20-55); Platelet Estimate Decreased; Segmented Neutrophils 41 % (50-85); Total Cells Counted 100
[2019-03-01] MEDS ORDERED: ENTECAVIR 0.5 MG PO SCH (09:00)
[2019-03-01] MEDS: ZINC SULFATE 220 MG CAPSULE PO SCH (09:12)
[2019-03-01] MEDS: DOCUSATE SODIUM 100 MG CAPSULE PO SCH (09:12)
[2019-03-01] MEDS: MULTIVITAMIN (CENTRUM) TABLET PO SCH (09:12)
[2019-03-01] MEDS: PANTOPRAZOLE 40 MG VIAL IV SCH (09:13)
[2019-03-01] MEDS: OXYBUTYNIN 5 MG TABLET PO PRN (09:14)
[2019-03-01] MEDS ORDERED: SPIRONOLACTONE 25 MG TABLET PO SCH (11:00)
[2019-03-01] MEDS: FUROSEMIDE 20 MG TABLET PO SCH ×2 (12:29→16:18)
[2019-03-01 16:35] VITALS: BP 110/70
== END 2019-03-01 18:46 | disposition home health service (06) | DRG 442 ==
LOC: EDUNIT# → EDBD → N.ED 21:06 → N.EDINP 23:19 → N.TELES 23:58
PROVIDERS: ADMIT Family Medicine; ATTEND Family Medicine

== ENCOUNTER 2019-03-12 13:01 | Inpatient (IN) ==
[2019-03-12 13:48] LABS: Basophils # 0.1 10*3/uL (0.0-0.2); Eosinophils # 0.4 10*3/uL (0.0-0.87); Eosinophils % 5.9 % (0.00-10.9); Hematocrit 25.8 VOL% (42.0-52.0); Hemoglobin 8.5 GM/DL (14.0-18.0); Immature Granulocytes % 1.8 %; Immature Granulocytes Absolute 0.11 #; Lymphocytes # 1.9 10*3/uL (1.4-4.0); Lymphocytes % 31.7 % (21.2-54.2); Mean Corpuscular HGB Conc 32.9 GM/DL (32-36); Mean Corpuscular Volume 104.9 FL (87-102); Mean Platelet Volume 9.7 FL (9.6-12.0); Monocytes % 15.3 % (1.7-12.7); Neutrophils % 44.3 % (38.7-73.9); Platelet Count 124 T/CUMM (130-400); Red Blood Count 2.46 MC/CUMM (3.8-5.5); Red Cell Distribution Width 16.3 % (9.3-17.3); White Blood Count 6.1 T/CUMM (4-12)
[2019-03-12 14:09] LABS: Albumin 1.6 G/DL (3.4-5.0); Bilirubin,Direct 1.22 MG/DL (0.0-0.20); Bilirubin,Indirect 0.8 MG/DL (0.0-1.0); Calcium 7.4 MG/DL (8.5-10.1); Osmolality,Calculated 272.2 MOS/KG (273-304); Total Protein 5.5 G/DL (6.4-8.3)
[2019-03-12] MEDS ORDERED: DOPamine 800 MG/250 ML PREMIX IV PRN ×2 (16:31→16:35)
[2019-03-12 16:59] LABS: Apearance,Urine CLEAR (Clear); Bilirubin,Urine Negative (Negative); Blood, Urine Large mg/dL (Negative); Glucose,Urine (UA) Negative (Negative); Hyaline Casts,Urine 26 /LPF (0-3); Ketones,Urine Negative (Negative); Mucus,Urine Occasional /LPF (Occasional); Nitrite,Urine Negative (Negative); Protein,Urine Negative; RBC,Urine 52 /HPF (0-4); Squamous Epithelial Cell,Urine Occasional /HPF (0-10); Urine Color Yellow (Yellow); Urine Specific Gravity 1.013 (1.001-1.035); Urine Urobilinogen < 2.0 EU/DL (0.2-1.0); WBC,Urine 8 /HPF (0-6)
[2019-03-12] MEDS ORDERED: ACETAMINOPHEN 325 MG TABLET PO PRN (17:34)
[2019-03-12] MEDS ORDERED: ONDANSETRON 4 MG/2 ML VIAL IV PRN (17:34)
[2019-03-12] MEDS ORDERED: SODIUM CHLORIDE 0.9% 250 ML IV STA (17:38)
[2019-03-12] MEDS: DEXTROSE 5% NACL 0.9% 1,000 ML IV SCH (20:55)
[2019-03-12] MEDS: FUROSEMIDE 20 MG TABLET PO SCH (20:55)
[2019-03-12] MEDS: FAMOTIDINE 20 MG TABLET PO SCH (23:28)
[2019-03-12] MEDS: DOCUSATE SODIUM 100 MG CAPSULE PO SCH (23:28)
[2019-03-12] MEDS: LACTULOSE 20 GM/30 ML UDCUP PO SCH (23:30)
[2019-03-13 04:35] LABS: Basophils # 0.1 10*3/uL (0.0-0.2); Basophils % 0.9 % (0.0-0.8); Eosinophils # 0.3 10*3/uL (0.0-0.87); Eosinophils % 6.5 % (0.00-10.9); Hematocrit 22.3 VOL% (42.0-52.0); Hemoglobin 7.4 GM/DL (14.0-18.0); Immature Granulocytes % 1.7 %; Immature Granulocytes Absolute 0.09 #; Lymphocytes # 1.9 10*3/uL (1.4-4.0); Lymphocytes % 35.9 % (21.2-54.2); Mean Corpuscular HGB Conc 33.2 GM/DL (32-36); Mean Corpuscular Volume 104.2 FL (87-102); Mean Platelet Volume 10.1 FL (9.6-12.0); Monocytes % 16.9 % (1.7-12.7); Neutrophils % 38.1 % (38.7-73.9); Platelet Count 108 T/CUMM (130-400); Red Blood Count 2.14 MC/CUMM (3.8-5.5); Red Cell Distribution Width 16.2 % (9.3-17.3); White Blood Count 5.3 T/CUMM (4-12)
[2019-03-13 04:57] LABS: Calcium 7.3 MG/DL (8.5-10.1); Osmolality,Calculated 276.8 MOS/KG (273-304)
[2019-03-13] MEDS ORDERED: SODIUM CHLORIDE 0.9% 250 ML IV STA (07:08)
[2019-03-13] MEDS ORDERED: SODIUM CHLORIDE 0.9% 500 ML IV STA (07:08)
[2019-03-13] MEDS ORDERED: SODIUM CHLORIDE 0.9% 1,000 ML IV PRN (08:31)
[2019-03-13] MEDS ORDERED: FUROSEMIDE 40 MG/4 ML VIAL IV ONE (08:34)
[2019-03-13] MEDS: LACTULOSE 20 GM/30 ML UDCUP PO SCH ×2 (08:40→20:23)
[2019-03-13] MEDS: DOCUSATE SODIUM 100 MG CAPSULE PO SCH ×2 (08:40→20:19)
[2019-03-13] MEDS: FAMOTIDINE 20 MG TABLET PO SCH ×2 (08:40→20:19)
[2019-03-13] MEDS: FUROSEMIDE 20 MG TABLET PO SCH ×2 (08:41→20:23)
[2019-03-13 08:44] LABS: Eosinophils 14 % (0-10); Lymphocytes 33 % (20-55); Segmented Neutrophils 28 % (50-85); Total Cells Counted 100
[2019-03-13 08:45] LABS: Smudge Cells Few
[2019-03-13 08:46] LABS: Atypical Lymphocytes Few; Reactive Lymphocytes Few
[2019-03-13 08:47] LABS: Macrocytosis 1+; Ovalocytes Few; Polychromasia Slight; Schistocytes Slight
[2019-03-13 08:48] LABS: Platelet Estimate Adequate
[2019-03-13 08:57] LABS: Uric Acid 7.2 MG/DL (3.5-7.2)
[2019-03-13] MEDS ORDERED: PANTOPRAZOLE 40 MG TABLET PO SCH (09:00)
[2019-03-13 09:37] LABS: INR 1.4; PT Patient Result 15.2 SECS
[2019-03-13] MEDS: DEXTROSE 5% NACL 0.9% 1,000 ML IV SCH (16:58)
[2019-03-14 08:06] LABS: Basophils # 0.1 10*3/uL (0.0-0.2); Basophils % 0.9 % (0.0-0.8); Eosinophils # 0.3 10*3/uL (0.0-0.87); Eosinophils % 6.4 % (0.00-10.9); Hematocrit 28.8 VOL% (42.0-52.0); Hemoglobin 9.4 GM/DL (14.0-18.0); Immature Granulocytes % 1.5 %; Immature Granulocytes Absolute 0.08 #; Lymphocytes # 1.6 10*3/uL (1.4-4.0); Mean Corpuscular HGB Conc 32.6 GM/DL (32-36); Mean Corpuscular Volume 97.3 FL (87-102); Mean Platelet Volume 9.6 FL (9.6-12.0); Monocytes % 14.4 % (1.7-12.7); Neutrophils % 46.8 % (38.7-73.9); Platelet Count 105 T/CUMM (130-400); Red Blood Count 2.96 MC/CUMM (3.8-5.5); Red Cell Distribution Width 20.2 % (9.3-17.3); White Blood Count 5.3 T/CUMM (4-12)
[2019-03-14] MEDS: FUROSEMIDE 20 MG TABLET PO SCH (08:55)
[2019-03-14] MEDS: DOCUSATE SODIUM 100 MG CAPSULE PO SCH (08:55)
[2019-03-14] MEDS: FAMOTIDINE 20 MG TABLET PO SCH (08:55)
[2019-03-14] MEDS: LACTULOSE 20 GM/30 ML UDCUP PO SCH (08:56)
[2019-03-14 11:03] LABS: Burr Cells Few; Ovalocytes Slight; Platelet Estimate Decreased; Schistocytes Slight; Target Cells Slight
[2019-03-14] MEDS: DEXTROSE 5% NACL 0.9% 1,000 ML IV SCH (15:05)
[2019-03-14 17:10] VITALS: BP 108/63
== END 2019-03-14 19:26 | disposition home or self-care (01) | DRG 812 ==
LOC: N.ED 13:01 → N.EDINP 17:34 → N.TELES 19:28
PROVIDERS: ADMIT Family Medicine; ATTEND Family Medicine

== ENCOUNTER 2019-04-01 17:06 | Inpatient (IN) ==
[2019-04-01] MEDS ORDERED: ALBUTEROL/IPRATROPIUM 3 ML NEB RESP TX STA (20:31)
[2019-04-01] MEDS ORDERED: FUROSEMIDE 40 MG/4 ML VIAL IV STA (20:31)
[2019-04-01 21:17] LABS: Basophils # 0.1 10*3/uL (0.0-0.2); Basophils % 0.7 % (0.0-0.8); Eosinophils % 0.1 % (0.00-10.9); Hematocrit 30.9 VOL% (42.0-52.0); Hemoglobin 10.3 GM/DL (14.0-18.0); Immature Granulocytes % 14.3 %; Lymphocytes # 0.8 10*3/uL (1.4-4.0); Lymphocytes % 5.2 % (21.2-54.2); Mean Corpuscular HGB Conc 33.3 GM/DL (32-36); Mean Corpuscular Volume 96.9 FL (87-102); Mean Platelet Volume 9.8 FL (9.6-12.0); Monocytes % 9.1 % (1.7-12.7); NRBC # 0.02 10*3/uL; Neutrophils % 70.6 % (38.7-73.9); Platelet Count 150 T/CUMM (130-400); Red Blood Count 3.19 MC/CUMM (3.8-5.5); Red Cell Distribution Width 18.1 % (9.3-17.3); White Blood Count 16.1 T/CUMM (4-12)
[2019-04-01 21:24] LABS: INR 1.5; PT Patient Result 16.2 SECS
[2019-04-01 21:43] LABS: Alanine Aminotransferase 40 U/L (16-61); Albumin 1.4 G/DL (3.4-5.0); Alkaline Phosphatase 114 U/L (45-117); Amylase 42 U/L (25-115); Aspartate Amino Transferase 118 U/L (0-37); Blood Urea Nitrogen 54 MG/DL (7-18); Calcium 8.6 MG/DL (8.5-10.1); Glucose 115 MG/DL (74-106); Osmolality,Calculated 264.6 MOS/KG (273-304); Total Protein 5.8 G/DL (6.4-8.3)
[2019-04-01 21:53] LABS: Band Neutrophils 17 % (0-10); Lymphocytes 12 % (20-55); Metamyelocytes 6 %; Myelocytes 2 %; Segmented Neutrophils 50 % (50-85); Total Cells Counted 100
[2019-04-01 21:55] LABS: Burr Cells 2+; Platelet Estimate Adequate; Polychromasia Few
[2019-04-01 22:06] LABS: Apearance,Urine Slightly Hazy (Clear); Bacteria,Urine Many /HPF (Few); Bilirubin,Urine Negative (Negative); Blood, Urine Large mg/dL (Negative); Glucose,Urine (UA) Negative (Negative); Hyaline Casts,Urine 27 /LPF (0-3); Ketones,Urine Negative (Negative); Nitrite,Urine Negative (Negative); Protein,Urine Negative; RBC,Urine 12 /HPF (0-4); Squamous Epithelial Cell,Urine Occasional /HPF (0-10); Urine Specific Gravity 1.012 (1.001-1.035); Urine Urobilinogen < 2.0 EU/DL (0.2-1.0); WBC,Urine 3 /HPF (0-6)
[2019-04-01 22:07] LABS: Urine Color Dark yellow (Yellow)
[2019-04-01] MEDS ORDERED: CALCIUM CHLORIDE 1,000 MG/10 ML SYRINGE IV STA (23:08)
[2019-04-01] MEDS ORDERED: SODIUM BICARBONATE 50 MEQ/50 ML VIAL IV STA (23:09)
[2019-04-01] MEDS ORDERED: SODIUM POLYSTYRENE SULFATE 15 GM/60 ML BOTTLE PO STA (23:09)
[2019-04-02] MEDS ORDERED: SODIUM BICARBONATE 50 MEQ/50 ML SYRINGE IV ONE (01:06)
[2019-04-02] MEDS ORDERED: GLUCAGON 1 MG VIAL IM PRN (01:32)
[2019-04-02] MEDS ORDERED: ALBUTEROL/IPRATROPIUM 3 ML NEB RESP TX PRN (01:32)
[2019-04-02] MEDS ORDERED: ACETAMINOPHEN 325 MG TABLET PO PRN (01:32)
[2019-04-02 05:02] LABS: Basophils % 0.1 % (0.0-0.8); Eosinophils % 0.1 % (0.00-10.9); Hematocrit 29.6 VOL% (42.0-52.0); Hemoglobin 10.2 GM/DL (14.0-18.0); Immature Granulocytes Absolute 2.35 #; Lymphocytes # 0.8 10*3/uL (1.4-4.0); Lymphocytes % 4.2 % (21.2-54.2); Mean Corpuscular HGB Conc 34.5 GM/DL (32-36); Mean Corpuscular Volume 94.6 FL (87-102); Mean Platelet Volume 10.3 FL (9.6-12.0); Monocytes % 7.9 % (1.7-12.7); Neutrophils % 75.7 % (38.7-73.9); Platelet Count 140 T/CUMM (130-400); Red Blood Count 3.13 MC/CUMM (3.8-5.5); Red Cell Distribution Width 18.4 % (9.3-17.3); White Blood Count 19.5 T/CUMM (4-12)
[2019-04-02 05:16] LABS: Alanine Aminotransferase 34 U/L (16-61); Albumin 1.4 G/DL (3.4-5.0); Alkaline Phosphatase 107 U/L (45-117); Aspartate Amino Transferase 106 U/L (0-37); Blood Urea Nitrogen 59 MG/DL (7-18); Calcium 9.2 MG/DL (8.5-10.1); Glucose 92 MG/DL (74-106); HDL Cholesterol 11 MG/DL (40-60); Osmolality,Calculated 267.5 MOS/KG (273-304); Risk Ratio 4.55; Total Protein 5.5 G/DL (6.4-8.3); Triglycerides 70 MG/DL (2-150)
[2019-04-02 05:28] LABS: Band Neutrophils 29 % (0-10); Lymphocytes 5 % (20-55); Metamyelocytes 1 %; Platelet Estimate Decreased; Segmented Neutrophils 59 % (50-85); Total Cells Counted 100
[2019-04-02] MEDS: LACTULOSE 20 GM/30 ML UDCUP PO SCH ×4 (07:04→23:52)
[2019-04-02] MEDS: INSULIN REGULAR 100 UNIT/ML SUBCUT SCH ×4 (07:04→23:55)
[2019-04-02] MEDS ORDERED: FUROSEMIDE 40 MG TABLET PO SCH (09:00)
[2019-04-02] MEDS ORDERED: ENTECAVIR 0.5 MG PO SCH (09:00)
[2019-04-02] MEDS: DOCUSATE SODIUM 100 MG CAPSULE PO SCH ×2 (09:16→20:16)
[2019-04-02] MEDS: SODIUM CHLORIDE 0.9% 1,000 ML IV SCH ×2 (10:39→23:51)
[2019-04-02] MEDS: PANTOPRAZOLE 40 MG VIAL IV SCH (10:40)
[2019-04-02] MEDS: cefTRIAXone 1,000 MG in SYRINGE 1 EACH IV SCH (10:42)
[2019-04-02] MEDS ORDERED: ALBUMIN 25% 25 GM in PREMIX 1 EACH IV ONE (11:30)
[2019-04-02] MEDS ORDERED: ALBUMIN 25% 12.5 GM/50 ML VIAL IV ONE (16:00)
[2019-04-02] MEDS ORDERED: ALBUMIN 25% 12.5 GM in PREMIX 1 EACH IV ONE (16:11)
[2019-04-02] MEDS ORDERED: FUROSEMIDE 20 MG TABLET PO SCH (18:00)
[2019-04-02 21:59] LABS: Glucose,Peritoneal Fluid 55 MG/DL; LDH,Peritoneal Fluid 686 U/L; Total Protein,Peritoneal Fluid < 1.0 G/DL
[2019-04-02 22:44] LABS: Neutrophils,Peritoneal Fluid 93 %; RBC,Peritoneal Fluid 570 T/CUMM
[2019-04-03] MEDS: SODIUM CHLORIDE 0.9% 1,000 ML IV SCH (01:29)
[2019-04-03] MEDS: MORPHINE 4 MG/1 ML VIAL IV PRN ×4 (04:15→21:59)
[2019-04-03 05:04] LABS: Basophils # 0.1 10*3/uL (0.0-0.2); Basophils % 0.8 % (0.0-0.8); Eosinophils % 0.1 % (0.00-10.9); Hematocrit 27.2 VOL% (42.0-52.0); Hemoglobin 9.2 GM/DL (14.0-18.0); Immature Granulocytes % 13.5 %; Lymphocytes # 0.9 10*3/uL (1.4-4.0); Lymphocytes % 4.9 % (21.2-54.2); Mean Corpuscular HGB Conc 33.8 GM/DL (32-36); Mean Corpuscular Volume 95.8 FL (87-102); Mean Platelet Volume 9.7 FL (9.6-12.0); Monocytes % 7.9 % (1.7-12.7); NRBC # 0.03 10*3/uL; Neutrophils % 72.8 % (38.7-73.9); Platelet Count 107 T/CUMM (130-400); Red Blood Count 2.84 MC/CUMM (3.8-5.5); Red Cell Distribution Width 18.4 % (9.3-17.3); White Blood Count 17.8 T/CUMM (4-12)
[2019-04-03 05:13] LABS: INR 1.9
[2019-04-03] MEDS: LACTULOSE 20 GM/30 ML UDCUP PO SCH ×4 (05:24→23:45)
[2019-04-03 05:33] LABS: Albumin 1.7 G/DL (3.4-5.0); Bilirubin,Total 3.7 MG/DL (0.2-1.0); Calcium 8.1 MG/DL (8.5-10.1); Osmolality,Calculated 269.5 MOS/KG (273-304); Total Protein 4.7 G/DL (6.4-8.3)
[2019-04-03 05:35] LABS: Band Neutrophils 7 % (0-10); Lymphocytes 4 % (20-55); Platelet Estimate Decreased; Polychromasia Few; Segmented Neutrophils 78 % (50-85); Total Cells Counted 100
[2019-04-03] MEDS: INSULIN REGULAR 100 UNIT/ML SUBCUT SCH ×3 (06:54→18:33)
[2019-04-03] MEDS ORDERED: ALBUMIN 25% 50 GM in PREMIX 1 EACH IV ONE (08:24)
[2019-04-03] MEDS: DOCUSATE SODIUM 100 MG CAPSULE PO SCH ×2 (09:20→21:50)
[2019-04-03] MEDS: PANTOPRAZOLE 40 MG VIAL IV SCH (09:21)
[2019-04-03] MEDS: cefTRIAXone 1,000 MG in SYRINGE 1 EACH IV SCH (09:25)
[2019-04-03] MEDS: SODIUM BICARB INJ 150 MEQ in STERILE WATER INJ 850 ML IV SCH ×2 (10:10→22:02)
[2019-04-03] MEDS: ONDANSETRON 4 MG/2 ML VIAL IV PRN (21:59)
[2019-04-04] MEDS: INSULIN REGULAR 100 UNIT/ML SUBCUT SCH ×4 (02:39→18:29)
[2019-04-04] MEDS: LACTULOSE 20 GM/30 ML UDCUP PO SCH ×2 (05:30→13:56)
[2019-04-04] MEDS: PANTOPRAZOLE 40 MG VIAL IV SCH (08:55)
[2019-04-04] MEDS: DOCUSATE SODIUM 100 MG CAPSULE PO SCH (08:55)
[2019-04-04] MEDS: MORPHINE 4 MG/1 ML VIAL IV PRN ×2 (08:58→14:18)
[2019-04-04] MEDS ORDERED: ENTECAVIR PO SCH (09:00)
[2019-04-04] MEDS: cefTRIAXone 1,000 MG in SYRINGE 1 EACH IV SCH (09:56)
[2019-04-04] MEDS: SODIUM BICARB INJ 150 MEQ in STERILE WATER INJ 850 ML IV SCH ×2 (10:01→13:57)
[2019-04-04] MEDS: ONDANSETRON 4 MG/2 ML VIAL IV PRN (17:58)
[2019-04-04] MEDS: DEXTROSE 50% 25 GM/50 ML SYRINGE IV PRN (21:29)
[2019-04-04 22:11] LABS: Albumin 2.1 G/DL (3.4-5.0); Bilirubin,Total 4.4 MG/DL (0.2-1.0); Calcium 7.7 MG/DL (8.5-10.1); Osmolality,Calculated 274.8 MOS/KG (273-304); Total Protein 4.8 G/DL (6.4-8.3)
[2019-04-04] MEDS ORDERED: SODIUM POLYSTYRENE SULFATE 15 GM/60 ML BOTTLE PO ONE (23:00)
[2019-04-04] MEDS: RIFAXIMIN 550 MG TABLET PO SCH (23:30)
[2019-04-05] MEDS ORDERED: SODIUM CHLORIDE 0.45% IV SCH
[2019-04-05] MEDS ORDERED: SODIUM BICARB IV SCH
[2019-04-05] MEDS: DOCUSATE SODIUM 100 MG CAPSULE PO SCH ×3 (00:09→09:51)
[2019-04-05] MEDS: INSULIN REGULAR 100 UNIT/ML SUBCUT SCH ×4 (00:10→17:19)
[2019-04-05 04:04] LABS: Basophils % 0.1 % (0.0-0.8); Eosinophils # 0.1 10*3/uL (0.0-0.87); Eosinophils % 0.1 % (0.00-10.9); Hematocrit 31.2 VOL% (42.0-52.0); Hemoglobin 10.3 GM/DL (14.0-18.0); Immature Granulocytes % 27.4 %; Immature Granulocytes Absolute 14.06 #; Lymphocytes # 2.8 10*3/uL (1.4-4.0); Lymphocytes % 5.4 % (21.2-54.2); Mean Corpuscular Volume 99.4 FL (87-102); Mean Platelet Volume 10.8 FL (9.6-12.0); Monocytes % 7.4 % (1.7-12.7); NRBC # 0.19 10*3/uL; Neutrophils % 59.6 % (38.7-73.9); Platelet Count 121 T/CUMM (130-400); Red Blood Count 3.14 MC/CUMM (3.8-5.5); Red Cell Distribution Width 19.7 % (9.3-17.3)
[2019-04-05 04:13] LABS: White Blood Count 51.4 T/CUMM (4-12)
[2019-04-05 04:25] LABS: Albumin 2.1 G/DL (3.4-5.0); Bilirubin,Total 5.1 MG/DL (0.2-1.0); Calcium 7.2 MG/DL (8.5-10.1); Osmolality,Calculated 273.6 MOS/KG (273-304); Total Protein 5.1 G/DL (6.4-8.3)
[2019-04-05 04:36] LABS: Band Neutrophils 20 % (0-10); Eosinophils 2 % (0-10); Lymphocytes 6 % (20-55); Metamyelocytes 5 %; Myelocytes 3 %; Ovalocytes 1+; Platelet Estimate Decreased; Segmented Neutrophils 58 % (50-85); Total Cells Counted 100
[2019-04-05] MEDS ORDERED: MEROPENEM 500 MG in SODIUM CHLORIDE 0.9% 100 ML IV SCH ×2 (05:30→09:00)
[2019-04-05] MEDS ORDERED: DEXTROSE 50% 25 GM/50 ML SYRINGE IV ONE (06:44)
[2019-04-05] MEDS ORDERED: INSULIN REGULAR 100 UNIT/ML IV ONE (06:44)
[2019-04-05] MEDS ORDERED: CALCIUM CHLORIDE 1,000 MG/10 ML SYRINGE IV ONE ×5 (07:18→14:59)
[2019-04-05] MEDS ORDERED: AMIODARONE INJ 150 MG in DEXTROSE 5% 100 ML IV ONE (07:40)
[2019-04-05] MEDS ORDERED: AMIODARONE 150 MG/3 ML VIAL ONE (07:43)
[2019-04-05] MEDS ORDERED: CALCIUM GLUCONATE 1,000 MG in SODIUM CHLORIDE 0.9% 100 ML IV ONE (08:00)
[2019-04-05] MEDS: RIFAXIMIN 550 MG TABLET PO SCH ×2 (09:37→09:51)
[2019-04-05] MEDS: PANTOPRAZOLE 40 MG VIAL IV SCH (09:38)
[2019-04-05] MEDS ORDERED: SODIUM POLYSTYRENE SULFATE 15 GM/60 ML BOTTLE PO ONE ×2 (09:49→10:00)
[2019-04-05] MEDS ORDERED: SODIUM POLYSTYRENE SULFATE 15 GM/60 ML BOTTLE RECTAL ONE (10:00)
[2019-04-05] MEDS ORDERED: PHENYLEPHRINE DRIP 40 MG/250 ML PREMIX IV ONE (10:54)
[2019-04-05] MEDS ORDERED: SODIUM BICARBONATE 50 MEQ/50 ML VIAL IV ONE ×2 (11:01→11:05)
[2019-04-05 11:17] LABS: ABG Base Excess -12.6 MMOL/L (-2.5-2.5); ABG HCO3 14.5 MMOL/L (20-26); ABG Oxygen Saturation 92.8 % (95-100); ABG PCO2 40.6 MM HG (35-48); ABG PO2 89.8 MM HG (80-95); ABG TCO2 14.4 MMOL/L (23-27); Allen Test Positive
[2019-04-05 11:19] LABS: ABG PH 7.181 (7.35-7.45)
[2019-04-05] MEDS: PHENYLEPHRINE DRIP 40 MG/250 ML PREMIX IV PRN ×2 (11:39→12:39)
[2019-04-05] MEDS: DEXTROSE 50% 25 GM/50 ML SYRINGE IV PRN ×2 (11:48→17:08)
[2019-04-05] MEDS ORDERED: SODIUM CHLORIDE 0.9% 250 ML IV ONE ×2 (12:18→13:16)
[2019-04-05] MEDS ORDERED: NOREPINEPHRINE 8 MG in SODIUM CHLORIDE 0.9% 242 ML IV PRN (13:50)
[2019-04-05] MEDS ORDERED: NOREPINEPHRINE 4 MG/4 ML VIAL IV ONE (14:00)
[2019-04-05] MEDS ORDERED: EPINEPHrine 1 MG/10 ML SYRINGE IV ONE ×2 (14:32→14:56)
[2019-04-05] MEDS ORDERED: SODIUM BICARBONATE 50 MEQ/50 ML SYRINGE IV ONE ×2 (14:37→14:57)
[2019-04-05] MEDS ORDERED: ATROPINE 1 MG/10 ML SYRINGE IV ONE (14:42)
[2019-04-05] MEDS ORDERED: ETOMIDATE 40 MG/20 ML VIAL IV ONE (14:48)
[2019-04-05] MEDS ORDERED: ROCURONIUM 100 MG/10 ML VIAL IV ONE (14:48)
[2019-04-05] MEDS ORDERED: EPINEPHrine 1 MG/ML VIAL ONE (14:56)
[2019-04-05] MEDS ORDERED: DOBUTamine 500 MG/250 ML PREMIX IV PRN (16:24)
[2019-04-05] MEDS ORDERED: DEXTROSE 10% 1,000 ML IV SCH ×2 (17:03→17:30)
[2019-04-05 18:18] VITALS: BP 88/48
[2019-04-06] MEDS ORDERED: ENTECAVIR 0.5 MG PO SCH (09:00)
== END 2019-04-05 17:53 | disposition expired | DRG 682 ==
LOC: N.ED 17:06 → N.EDINP 04-02 00:14 → N.TELEN 04-02 00:53 → N.CC 04-04 20:36
PROVIDERS: ADMIT Family Medicine; ATTEND Family Medicine